=== PATIENT | female | born 1985 | race Caucasian/White ===

== ENCOUNTER 2024-07-03 06:07 | Day surgery (SDC) | payer OTHER, SELFPAY ==
[2024-06-11 09:50] VITALS: BMI 27.3
[2024-07-03] VITALS (12 sets, daily range): BP systolic 109–132; BP diastolic 66–84; PULSE 74–106; RESP 14–20; TEMP 36.4–36.9; O2SAT 96–100
--- NOTE | 2024-07-03 06:59 | WPDHPUPDATE1 ---
History and Physical Update Update Date/Time: 07/03/24 06:59 History and Physical has been reviewed, including an updated exam of the patient. There are NO changes in the patient's condition. Risks, benefits, and alternatives have been discussed and questions answered. Patient agrees to proceed with procedure.
--- NOTE | 2024-07-03 07:00 | WPDANESEPPF ---
Anes - Initial Pre Proc Eval Procedure: Operation Date: 07/03/24 08:00 Proposed Procedures p Bilateral Breast Augmentation Mammoplasty - Micah Ro MD s Bilateral Breast Mastopexy - Micah Ro MD Date/Time: 07/03/24 07:00 Surgeon: Micah Ro MD Pre Op Diagnosis: Micromastia, Breast Ptosis Patient Data Age: 39 Gender: F Height: 1.52 m Weight: 63.45 kg Allergies Allergy/AdvReac Type Severity Reaction Status Date / Time cefdinir Allergy Intermediate flu like Verified 07/03/24 07:03 symptoms clarithromycin (From Biaxin) Allergy Intermediate throat Verified 07/03/24 07:03 swelling diphenhydramine Allergy Intermediate Loss of Verified 07/03/24 07:03 Consciousness escitalopram Allergy Intermediate Palpitation Verified 07/03/24 07:03 s fluconazole (From Diflucan) Allergy Intermediate flu like Verified 07/03/24 07:03 symptoms pseudoephedrine AdvReac Intermediate Other Verified 07/03/24 07:03 Home Medications ?Medication ?Instructions ?Recorded ?Confirmed ?Type ascorbic acid (vitamin C) 500 mg 500 mg PO DAILY 06/11/24 07/03/24 History tablet (C-500) cholecalciferol (vitamin D3) 25 25 mcg PO DAILY 06/11/24 07/03/24 History mcg (1,000 unit) capsule (Vitamin D3) collagen,hydrolysate 500 mg-biotin 1 cap PO DAILY 06/11/24 07/03/24 History 800 mcg-ascorbic acid 50 mg capsule folic acid 1 mg tablet 1 mg PO DAILY 06/11/24 07/03/24 History hyperimmune colostrum, bovine 200 200 mg PO DAILY 06/11/24 07/03/24 History mg tablet zinc 50 mg capsule 50 mg PO DAILY 06/11/24 07/03/24 History fluticasone propionate 50 1 spray intranasal DAILY PRN 07/03/24 07/03/24 History mcg/actuation nasal allergies spray,suspension (24 Hour Allergy Relief) loratadine 10 mg tablet (Allergy 10 mg PO DAILY 07/03/24 07/03/24 History Relief (loratadine)) Patient hx anesthesia problems: none Family hx anesthesia problems: none Results Review: All pre-operative results and documents have been reviewed as part of the pre-operative evaluation. [facility] Past Medical History Medical History (Updated 07/03/24 @ 07:03 by Tim Oneal DO) Fibromyalgia Asthma Social History Social History Smoking status: Former smoker Tobacco type: cigarettes Second hand tobacco smoke exposure: Yes Additional smoking assessment comments: Quit 2018 Alcohol use details: 1-4 drinks per month Substance use: current Substance use type: marijuana Other substance usage details: Daily Living arrangements: with family Spiritual care concerns: No Anes - Eval Final PreProcedure Day of Procedure 07/03/24 07:00 Patient weight: overweight Heart: regular rate and rhythm Lungs: clear to auscultation Airway: Mallampati scale class II Neurological: alert and oriented Last oral intake: >/= 8 hours ASA classification: III Emergent: no Anesthetic plan: proceed Anesthesia type and monitoring: general LMA and standard monitoring Results Review: All pre-operative results and documents have been reviewed as part of the pre-operative evaluation. Informed Consent: The patient's anesthetic plan and its attendant risks and benefits were discussed with the patient/family/POA. Questions were solicited and answers provided to the satisfaction of the patient/family/POA.
[2024-07-03] MEDS: LACTATED RINGERS 1,000 ML 30 ML IV CONT ×2 (07:08→11:00)
[2024-07-03] MEDS: TRANEXAMIC ACID 1,000 MG/10 ML AMPUL 1000 MG IV PUSH (07:09)
--- NOTE | 2024-07-03 07:18 | W.PM.PROC2 ---
Procedure Note - Detailed Date of Procedure 07/03/24 Pre-op Diagnosis Micromastia, Breast Ptosis Post-op Diagnosis Same Procedure Performed Bilateral augmentation mastopexy with galaflex Surgeon Micah Ro MD Anesthesia General Findings Inverted T Superior medial pedicle Bilateral Natrelle Saline 325cc filled to 345 Right - REF# [id number] SN [id number] Left - REF# [id number] SN [id number] Galalfex REF# [id number] Lipoaspirate 100cc Description of Procedure She is here today for bilateral breast augmentation mastopexy. Previously and again today the risks, benefits, alternatives were discussed in extensive detail. I wanted her to be very realistic about the risks involved as well as expectations. We discussed aftercare and what to monitor for. Made sure answered all of her questions to her satisfaction today and consent was obtained. Marked in the preoperative holding area with their verification. The patient was taken to the operating room placed supine on the operating table. Anesthesia was provided by anesthesiology. A surgical time-out was taken. She was prepped and draped in a standard sterile fashion. Tumescent was utilized laterally to provide field block Tegaderm nipple Gary were placed. A 15 blade used to make an incision just superior to the inframammary fold leaving a cusp of de-epithelized tissue at the t junction. Dissection was continued until the chest wall as identified. I elevated a subfascial pocket in the appropriate dimensions based on our preoperative planning for the implant. I then copiously irrigated with saline solution and verified a strict hemostasis. Next the use a triple antibiotic and Betadine containing solution to irrigate the pocket. I washed my gloves with the triple antibiotic and Betadine solution. We washed the implant immediately upon opening it with this solution and only opened it when we needed it. On the back table I prepped the implant to remove all air. It was introduced into the pocket and utilizing an implant fill kit filled to the volume above. The fill tubing was removed and I verified the valve sealed. Galaflex was soaking on the back table in a betadine solution. Trimmed and placed in implant pocket. Having verified positioning of the implant this was closed using 2-0 PDS. I tailor tacked the breast into position. Placed her in a sitting position. Verified the nipple-areolar location based on preoperative planning as well as intraoperative observations and measurements in full agreement. Suction lipectomy was completed laterally with a 4mm angie cannula. This was based on preoperative planning, intraoperative observation, and rolling pinch which was in full agreement. She was placed supine. I de-epithelialized the pedicle. I then removed the inferior central portion of the breast need making sure the implant was well protected. I elevated medial and lateral tissue flaps as well for planned closure. I closed along the IMF with 2-0 Stratafix. Along the vertical with 2-0 PDS. I closed around the areola with 3-0 strata fix. 3-0 Monocryl along the vertical. 3-0 Stratafix along the IMF. I finally closed everything with running subcuticular 4-0 Monocryl and tissue glue except vertical placed Brijjit Fluffs and surgical bra were placed. Estimated Blood Loss 30 Drains No Packing No Pathology None sent Complications No immediate complications Condition Stable Disposition PACU
[2024-07-03] MEDS: SCOPOLAMINE 1 MG PATCH 1 PATCH TRANSDERM (07:21)
[2024-07-03] MEDS: ceFAZolin SODIUM 2 GM/20 ML SW SYRINGE IV PUSH (07:37)
[2024-07-03] MEDS: LACTATED RINGERS IRRIG 1,000 ML, LIDOCAINE 1% LOCAL INJ 50 ML, EPINEPHrine HCL INJ 1 MG... INFILTRATE (08:00)
[2024-07-03] MEDS: NACL 0.9% IRRIG POUR BOTTLE 900 ML, GENTAMICIN SULFATE INJ 160 MG, ceFAZolin 2 GM, POVI... IRRIGATION (10:30)
[2024-07-03] MEDS: fentaNYL CITRATE INJ (*CRX) 100 MCG/2 ML VIAL 25 MCG IV PUSH ×6 (11:09→11:42)
--- NOTE | 2024-07-03 11:24 | SUR.PHASEI ---
1105; PT DROWSY, TEARFUL AND SHAKING. VERBALLY CALMING PT. PT STARTING TO C/O PAIN AND TIGHTNESS TO BILAT BREASTS. FENTANYL GIVEN PRN. WILL APPLY DEANA DIANA. 1125; PT CALM NOW. NO LONGER SHIVERING.
--- NOTE | 2024-07-03 11:45 | SUR.PHASEI ---
PT TEARFUL AT TIMES. STATES READY TO SEE SPOUSE AND HAVE A DRINK
--- NOTE | 2024-07-03 11:50 | WPDANESPN ---
Anes - Prog Note Post-Op Date/Time: 07/03/24 11:50 Cardiovascular status: normal Respiratory status: normal Airway patency: baseline Mental status: baseline Post-Op hydration status: normal Vital Signs: Last Vital Signs Temp 36.5 C 07/03/24 11:45 Pulse 95 07/03/24 11:45 Resp 16 07/03/24 11:45 BP 132/84 07/03/24 11:45 Pulse Ox 98 07/03/24 11:45 O2 Del Method Room Air 07/03/24 11:45 O2 Flow Rate 6 07/03/24 11:30 Pain Score (VAS): 2 I/O: Intake & Output 07/02/24 07/03/24 07/03/24 23:59 07:59 15:59 Intake Total 500 250 Balance 500 250 Post-procedural complaints: none Patient Feedback: Patient satisfied with anesthetic care. Other Findings: Patient vital signs back to baseline. Patient denies nausea and vomiting. Patient's pain under control. Patient OK for discharge.
--- NOTE | 2024-07-03 13:51 | SUR.PHASEII ---
07/03/24 1300 Pt in phase 2 recovery following surgery with Dr. Ro bilateral breast implants. Pt states pain is a 8-9/10 during recovery. Pt calm, resting in stretcher during recovery, VSS. Pt states does not want oxycodone 5mg ordered and will wait until gets home to take prescribed pain medication. Pt wheeled out of ASC in no apparent distress, A&Ox4. Pt states will call Dr. Ro with concerns. Pt and Pt's state understanding of discharge instructions with no further concerns.
== END 2024-07-03 13:11 | disposition home or self-care (01) ==
PROVIDERS: Visit Provider Surgery Plastic and Reconstructive Surgery
PROC: (CPT 19325; principal; 2024-07-03 08:00)
PROC: (CPT 19316; 2024-07-03 08:00)
DX: Z41.1 Encounter for cosmetic surgery (principal); N64.82 Hypoplasia of breast; N64.81 Ptosis of breast
CPT/HCPCS: 19325; 19316; 15777 ×2